=== PATIENT | female | born 2000 | race Two or more races ===

== ENCOUNTER 2024-05-20 14:24 | Inpatient (IN) | payer OTHER ==
[~2024-05-20] VITALS: Ht 160 cm; Wt 56.7 kg
--- NOTE | 2024-05-20 14:30 | NUR ---
PTE ALERTA Y ORIENTADA X3 REFEIRE DOLOR ABDOMINAL EN EL EPIGASTRICO QUE LE RADICA A LA ESPALDA. REFIERE NAUSEAS SE LE CATALINA S/V Y SE UBICA
[2024-05-20] MEDS ORDERED: FAMOtidine 10 MG/ML (4ML VIAL) IV STA (14:49)
[2024-05-20] MEDS ORDERED: 0.9 % SODIUM CHLORIDE 1,000 ML IV STA (14:51)
--- NOTE | 2024-05-20 14:54 | NUR ---
SE COLECTAN MUESTRAS DE LABORATORIO Y SE CANALIZA A PACIENTE BAJO MEDIDAS ASEPTICAS. SE ADMINISTRAN MEDICAMENTOS RAMIRO ORDEN MEDICA.
[2024-05-20] MEDS ORDERED: HYOSCYAMINE SULFATE 0.125 MG TAB.SUBL ONE (14:56)
[2024-05-20] MEDS ORDERED: FAMOTIDINE/PF 20 MG/2 ML VIAL ONE (14:56)
[2024-05-20] MEDS ORDERED: HYOSCYAMINE SULFATE 0.125 MG TAB.SUBL SL ONE (15:00)
[2024-05-20 15:20] LABS: HEMATOCRIT 39.7 % (36.0-45.00); HEMOGLOBIN 13.1 g/dL (12.0-15.00); MEAN CELL VOLUME 82.8 fL (80.00-100.00); MEAN CORPUSCULAR HEMOGLOBIN 27.4 pg (27.00-32.0); MEAN CORPUSCULAR HGB CONC 33.1 g/dl (32.0-36.0); PLATELET COUNT 234 K/uL (150-450); RED BLOOD COUNT 4.79 M/uL (4.00-6.00)
[2024-05-20] MEDS ORDERED: MEPERIDINE HCL 25 MG/ML AMPUL IM STA (15:32)
[2024-05-20 15:47] LABS: CALCIUM 8.9 mg/dL (8.5-10.1); CREATININE SERUM 0.64 mg/dL (0.55-1.02); POTASSIUM 3.46 mEq/L (3.5-5.1)
[2024-05-20 18:18] LABS: URINE APPEARANCE Clear; URINE BILIRRUBIN Negative (NEGATIVE); URINE BLOOD Negative; URINE COLOR Yellow; URINE GLUCOSE Negative (NEGATIVE); URINE KETONE 15 (NEGATIVE); URINE LEUKOCYTE Negative; URINE NITRATE Negative; URINE PROTEIN Negative (NEGATIVE); URINE UROBILINOGEN 0.2 E.U./dl
[2024-05-20 18:26] LABS: URINE EPITHELIAL CELLS 16.1 uL (0.0-38.8); URINE RBC 5.4 uL (0.0-20.8); URINE WBC 7.1 uL (0.0-23.2)
[2024-05-20] MEDS ORDERED: PANTOPRAZOLE SODIUM 40 MG/VIAL VIAL IV SCH (22:24)
[2024-05-20] MEDS ORDERED: METRONIDAZOLE/SODIUM CHLORIDE 500 MG/100 ML PIGGYBACK IV SCH (22:24)
[2024-05-20] MEDS ORDERED: CIPROFLOXACIN IN 5 % DEXTROSE 400 MG/200 ML PIGGYBAG IV SCH (22:24)
[2024-05-20] MEDS ORDERED: ONDANSETRON HCL 4 MG in 0.9 % SODIUM CHLORIDE 50 ML IV PRN (22:30)
[2024-05-20] MEDS ORDERED: MORPHINE SULFATE 4 MG/ML VIAL IV PRN (22:30)
[2024-05-20] MEDS ORDERED: 0.9 % SODIUM CHLORIDE 1,000 ML IV SCH (23:00)
[2024-05-20 23:24] VITALS: BP 100/60
[2024-05-20] MEDS ORDERED: ONDANSETRON HCL 2 MG/ML VIAL ONE (23:51)
[2024-05-21 00:39] LABS: ALBUMIN 3.5 gm/dL (3.4-5.0); BILIRUBIN TOTAL 0.85 mg/dL (0.3-1.2); CREATININE SERUM 0.62 mg/dL (0.55-1.02); GFR 118.26; GLOBULINA 3.1 G/DL (2.4-3.5); POTASSIUM 3.46 mEq/L (3.5-5.1); TOTAL PROTEIN 6.6 gm/dL (6.4-8.2)
[2024-05-21 06:45] LABS: INR 1.04; PROTHROMBIN TIME 11.3 SECONDS (9.0-11.5)
[2024-05-21 08:00] VITALS: BP 83/51; O2SAT 99
[2024-05-22 06:53] LABS: ALBUMIN 3.3 gm/dL (3.4-5.0); BILIRUBIN TOTAL 0.5 mg/dL (0.3-1.2); CALCIUM 8.4 mg/dL (8.5-10.1); CREATININE SERUM 0.58 mg/dL (0.55-1.02); GFR 127.72; GLOBULINA 2.7 G/DL (2.4-3.5); POTASSIUM 4.03 mEq/L (3.5-5.1)
== END 2024-05-22 10:44 | disposition home or self-care (01) | DRG 391 ==
LOC: ER 14:27 → MEDI 22:27
PROVIDERS: General Practice; ADMIT Internal Medicine; ATTEND Internal Medicine
PROC: BW40ZZZ Ultrasonography of Abdomen (ICD-10-PCS; principal; 2024-05-20)
PROC: BW21YZZ Computerized Tomography (CT Scan) of Abdomen and Pelvis using Other Contrast (ICD-10-PCS; 2024-05-20)
DX: K90.49 Malabsorption due to intolerance, not elsewhere classified (principal); K85.90 Acute pancreatitis without necrosis or infection, unspecified